=== PATIENT | female | born 1970 | race Caucasian/White ===

== ENCOUNTER 2020-09-19 14:55 | Outpatient (REF) | payer MEDICARE, MEDICAID, SELFPAY | END 2020-09-19 14:56 | disposition home or self-care (01) | LOC: HO.LAB 14:55 | PROVIDERS: PCP Internal Medicine; Visit Provider Internal Medicine | DX: Z20.828 Contact with and (suspected) exposure to other viral communicable diseases (principal) | CPT/HCPCS: C9803; U0003 ==

== ENCOUNTER 2020-11-07 06:47 | Outpatient (REF) | payer MEDICARE, MEDICAID, SELFPAY | END 2020-11-07 06:48 | disposition home or self-care (01) | LOC: HO.LAB 06:47 | PROVIDERS: PCP Internal Medicine; Visit Provider Internal Medicine | DX: Z20.828 Contact with and (suspected) exposure to other viral communicable diseases (principal) | CPT/HCPCS: C9803; U0003 ==

== ENCOUNTER 2020-11-22 11:23 | Outpatient (REF) | payer MEDICARE, MEDICAID, SELFPAY | END 2020-11-22 11:24 | disposition home or self-care (01) | LOC: HO.LAB 11:23 | PROVIDERS: PCP Internal Medicine; Visit Provider Internal Medicine | DX: Z20.822 Contact with and (suspected) exposure to COVID-19 (principal) | CPT/HCPCS: 36415; C9803; U0003 ==

== ENCOUNTER 2022-03-22 00:40 | Emergency (ER) | payer MEDICARE, MEDICAID, SELFPAY ==
[2022-03-22 00:42] VITALS: BP 140/60; PULSE 130; O2SAT 100
[2022-03-22 00:50] VITALS: BP 149/92; PULSE 116; RESP 22; TEMP 36.3; O2SAT 98; BMI 25.0
[2022-03-22 01:04] VITALS: PULSE 109; RESP 20; O2SAT 97
--- NOTE | 2022-03-22 01:15 | PC.NURSE ---
pt crying upon arrival, ice pack to groin, upon assessment. mild reddened area to livier area, pt given a new ice pack
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
[2022-03-22] MEDS: Silver Sulfadiazine 1 % Cream 20 GM TUBE 1 APPL TOPICAL (01:37)
--- NOTE | 2022-03-22 01:42 | PC.NURSE ---
pt a&o, no sob or chest pain. Provider into assess pt. Medicated per Mar.
== END 2022-03-22 01:56 | disposition home or self-care (01) ==
PROVIDERS: Emergency Provider Internal Medicine
DX: T21.12XA Burn of first degree of abdominal wall, initial encounter (principal); T31.0 Burns involving less than 10% of body surface; E11.9 Type 2 diabetes mellitus without complications; X10.1XXA Contact with hot food, initial encounter; Y93.9 Activity, unspecified; Y92.9 Unspecified place or not applicable; Y99.9 Unspecified external cause status
CPT/HCPCS: 16000; 99283; 99284

== ENCOUNTER 2023-06-29 09:59 | Emergency (ER) | payer OTHER, SELFPAY ==
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
[2023-06-29 10:08] VITALS: BP 139/85; BP 151/72; PULSE 83; PULSE 94; RESP 16; TEMP 36.1; O2SAT 93; O2SAT 98; BMI 33.1
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
[2023-06-29] MEDS: Acetaminophen 325 MG TABLET 650 MG PO (10:48)
[2023-06-29] MEDS: Cyclobenzaprine HCl 5 MG TABLET PO (10:48)
== END 2023-06-29 11:29 | disposition home or self-care (01) ==
PROVIDERS: Emergency Provider Emergency Medicine
DX: S16.1XXA Strain of muscle, fascia and tendon at neck level, initial encounter (principal); V44.5XXA Car driver injured in collision with heavy transport vehicle or bus in traffic accident, initial encounter; M25.511 Pain in right shoulder; Y93.89 Activity, other specified; Y92.414 Local residential or business street as the place of occurrence of the external cause; Y99.9 Unspecified external cause status
CPT/HCPCS: 73030; 99283; 99284